=== PATIENT | female | born 1965 | race Caucasian/White ===

== ENCOUNTER 2021-03-07 16:02 | Inpatient (IN) ==
[2021-03-07 16:50] LABS: Basophils # (auto) 0.04 K/uL (0-0.2); Basophils % (auto) 0.2 %; Eosinophils # (auto) 0.13 K/uL (0-0.5); Eosinophils % (auto) 0.7 %; Hematocrit (blood only) 42.4 % (37-47); Hemoglobin 14.8 g/dL (12.0-16.0); Immature Granulocytes # (auto) 0.05 K/uL (0.00-0.02); Immature Granulocytes % (auto) 0.3 %; Lymphocytes # (auto) 2.35 K/uL (1.2-3.4); Lymphocytes % (auto) 13.3 %; Mean Corpuscular Hgb Conc 34.9 g/dL (32-36); Mean Corpuscular Volume 91.6 fL (80-100); Mean Platelet Volume 10.1 fL (7.4-10.4); Monocytes # (auto) 1.47 K/uL (0.11-0.59); Monocytes % (auto) 8.3 %; Neutrophils # (auto) 13.62 K/uL (1.4-6.5); Neutrophils % (auto) 77.2 %; Platelet Count 348 K/uL (130-400); RDW Standard Deviation 43.5 fL (36.4-46.3); Red Blood Count 4.63 M/uL (4.2-5.4); White Blood Count 17.66 K/uL (4.8-10.8)
[2021-03-07] MEDS ORDERED: SODIUM CHLORIDE 0.9% 1000ML 2,000 ML IV ONE (16:54)
[2021-03-07 17:08] LABS: Albumin Level 3.4 gm/dl (3.4-5.0); BUN Creatinine Ratio 18.1 (10-20); Calcium 9.5 mg/dl (8.5-10.1); Creatinine Clr Calc Pharmacy 73.9 ml/min; Est GFR (African American) 115.6; Est GFR (Non-African American) 99.8; Potassium 3.9 mmol/L (3.5-5.1)
[2021-03-07 17:09] LABS: Pregnancy Test, Serum Negative (Negative)
[2021-03-07 17:11] LABS: Albumin Globulin Ratio 0.7 (0.9-2); Bilirubin,Total 0.7 mg/dl (0.2-1); Globulin 4.7 gm/dl (2.5-4.0); Total Protein 8.1 gm/dl (6.4-8.2)
[2021-03-07 17:16] LABS: Appearance Urine Clear (Clear); Bacteria Urine Automated Negative (Negative); Bilirubin Urine Negative (Negative); Blood Urine Negative (Negative); Cast Urine Automated 0 /lpf (0-5); Color Urine Dark Yellow; Epithelial Cell Urine Auto 20-30 /lpf (0-5); Glucose Urine UA Negative (Negative); Ketones Urine 2+ (Negative); Leukocyte Esterase Urine Trace (Negative); Nitrite Urine Negative (Negative); Protein Urine Negative (Negative); Urobilinogen Urine Negative (Negative)
[2021-03-07 17:31] LABS: Mucus Urine Present (None Prsent); RBC Urine Automated 0-4 /hpf (0-4)
[2021-03-07] MEDS ORDERED: OPTIRAY 300 100mL IV ONE (17:55)
--- NOTE | 2021-03-07 18:24 | CT Scan Report ---
ABDOMEN AND PELVIS CT WITH IV CONTRAST CT DOSE: 247.52 mGy.cm HISTORY: Acute sepsis with lower pelvic pain sepsis TECHNIQUE: Multiaxial CT images of the abdomen and pelvis were performed following the IV administrat ion of 83 cc of Optiray, A dose lowering technique was utilized adhering to the principles of ALARA. COMPARISON STUDY: CT abdomen and pelvis 02/24/2021 FINDINGS: Clear lung bases. No pneumatosis or pneumoperitoneum. The imaged inferior cardiac chambers are unrema rkable. The spleen, pancreas, adrenal glands, gallbladder and liver appear unremarkable. Patency of t he hepatic and portal veins. Unremarkable kidneys. There is no hydronephrosis. Urinary bladder, uterus and adnexa are unremarkable . Mild dilation of the left gonadal vein. Calcified plaque of the abdominal aorta without aneurysm. T here is no adenopathy. There is no bowel obstruction. Mild fecal retention. Moderate wall thickening of the mid sigmoid colo n with pericolonic infiltration centered around a sigmoid diverticulum on image 255. Moderate to exte nsive colonic diverticulosis. There is no abscess. The appendix is reportedly surgically absent. Unre markable soft tissues. No acute fracture. IMPRESSION: 1. Acute sigmoid diverticulitis. No abscess or pneumoperitoneum. 2. No bowel obstruction. 3. Additional findings as above. ACT 112: Negative or not required by law. The above report was generated using voice recognition software. It may contain grammatical, syntax o r spelling errors. Electronically signed by: Tommy Tirado M.D. 03/07/2021 6:23 PM
[2021-03-07] MEDS ORDERED: metroNIDAZOLE 500 MG/100 ML BAG IV STA (18:29)
[2021-03-07] MEDS ORDERED: CIPROFLOXACIN / D5W 400 MG/200 ML BAG IV STA (18:29)
--- NOTE | 2021-03-07 19:34 | Emergency Department Note ---
Impression & Plan Diverticulitis, Abdominal pain, Leukocytosis ED Provider Note NAME: JUWAN MORGAN AGE: 55 SEX: F : 1965 ARRIVES VIA: Walk-In INFORMANT: Patient ED PROVIDER(S): Fly Garcia DO CHIEF COMPLAINT: abdominal pain HPI: Patient is a 55-year-old female who presents the ER for severe abdominal pain. She rates the pain is a 9 out of 10. Its in the lower pelvis. She notes she was initially seen here about 2 weeks ago and treated for constipation discharge. She felt a little bit better and then this past Friday is when the pain started back up. She notes that she can barely move. She admits to nausea but no vomiting. Admits to some dysuria and urgency but no frequency. She saw gastroenterology today was placed on antibiotics. She admits to feeling hot and cold and chills in the past 24 hours. ROS: See above HPI for pertinent positives & negatives. A total of 10 systems reviewed and were otherwise negative. PAST MEDICAL HISTORY:See Below PAST SURGICAL HISTORY:See Below FAMILY HISTORY:See Below SOCIAL HISTORY:See Below HOME MEDICATIONS:See Below ALLERGIES:See Below VITALS:See Below PHYSICAL EXAMINATION: GENERAL: Lying in bed, moderate distress holding lower abdomen EYE EXAM: normal conjunctiva. PERRL and EOM's grossly intact. OROPHARYNX: mucous membranes are moist NECK: supple, no nuchal rigidity, no adenopathy, non-tender LUNGS: Clear to auscultation. Normal chest wall mechanics HEART: no murmurs, S1 normal and S2 normal ABDOMEN: abdomen soft, normo-active bowel sounds, no masses, +rebound or guarding in RLQ. UPPER EXTREMITIES: upper extremities are grossly normal. LOWER EXTREMITIES: No pitting edema. NEURO EXAM: Normal sensorium, cranial nerves II-XII grossly intact, normal speech, no gross weakness of arms, no gross weakness of legs. MEDICAL DECISION MAKING: Patient is a 55-year-old female who presents ER for severe abdominal pain. On exam she has rebound and guarding. IV was established blood work was obtained. Labs show leukocytosis 17,000. No significant anemia. She was tachycardic and borderline febrile upon arrival. BMP with LFTs bilirubin was unremarkable. Lipase was normal. hCG was negative. Urine was contaminated. was negative. Covid was ordered. CT abdomen pelvis shows sigmoid diverticulitis. There is no evidence of perforation. Patient has an allergy to penicillins and consequently was given Cipro and Flagyl to the IV. Based on exam with rebound and guarding, white count of 17,000, fever and tachycardia did feel was most reasonable to admit this patient. Discussed with Dr. Aida Maldonado for further evaluation. Triage Nursing notes reviewed. Vital Signs: reviewed and remarkable for febrile and tachy Differential diagnosis: Differential diagnoses includes but is not limited to gastritis, peptic ulcer disease, GERD, gallbladder disease, pancreatitis, small bowel obstruction, acute coronary syndrome, pericarditis, ischemic bowel, irritable bowel disease, irritable bowel syndrome, appendicitis, diverticulitis, malignancy, hernia, urinary tract infection, torsion, [/ectopic (if female)], perforation, trauma, infectious. ER treatment provided: See below Diagnostics interpreted by me: ECG: none Cardiac Monitoring: An order was placed for continuous cardiac monitoring. The monitor shows a rate of 85 with sinus rhythm. Laboratory studies: As stated above and show below. Imaging studies: CT abdomen pelvis shows sigmoid diverticulitis Consultation(s): Discussed with Dr. Cass Maldonado for further evaluation Procedures: none Critical Care: None Past Med/Surg History Medical History (Updated 03/07/21 @ 19:34 by Fly Garcia DO) No active medical problems Social History Smoking Status: Current every day smoker Feels Safe at Home: Yes Allergies Allergies Allergy/AdvReac Type Severity Reaction Status Date / Time Penicillins Allergy Joint Pain Unverified 03/07/21 18:51 aspirin AdvReac Weakness Unverified 03/07/21 18:51 Home Meds Home Medications Medication Instructions Recorded Confirmed fluticasone propion-salmeterol 2 inh INHALATION BID 02/24/21 03/07/21 [Advair HFA] Results & Data (ED) Vital Signs Vital Signs - 24 hr 03/07/21 16:10 03/07/21 17:00 03/07/21 18:46 Temperature 37.6 C H 37.8 C H Temperature Source Temporal Artery Scan Oral Pulse Rate 112 H Pulse Rate [Finger] 96 H 89 Respiratory Rate 18 16 20 Respiratory Effort / Characteristics Non-Labored Non-Labored Spontaneous Respiratory Depth Normal Normal Normal Respiratory Pattern Regular Blood Pressure 138/83 Blood Pressure [Right Arm] 120/89 133/84 Blood Pressure Mean 101 Blood Pressure Mean [Right Arm] 99 100 Pulse Oximetry 94 95 92 Oxygen Delivery Method Room Air Room Air Room Air Sepsis Recent Fever Within 48 Hours No Sepsis New/Unexplained Change in Mental Status No Sepsis Action Taken by Nursing No Action Required Laboratory Data Result diagrams: 03/07/21 16:33 03/07/21 16:33 Lab Results 03/07/21 03/07/21 03/07/21 Range/Units 16:33 16:33 16:33 WBC 17.66 H (4.8-10.8) K/uL RBC 4.63 (4.2-5.4) M/uL Hgb 14.8 (12.0-16.0) g/dL Hct 42.4 (37-47) % MCV 91.6 (80-100) fL MCH 32.0 (25-34) pg MCHC 34.9 (32-36) g/dL RDW Std Deviation 43.5 (36.4-46.3) fL RDW Coeff of Blossom 13.0 (11.5-14.5) % Plt Count 348 (130-400) K/uL MPV 10.1 (7.4-10.4) fL Immature Gran % (Auto) 0.3 % Neut % (Auto) 77.2 % Lymph % (Auto) 13.3 % [place] % (Auto) 8.3 % Eos % (Auto) 0.7 % Baso % (Auto) 0.2 % Neut # (Auto) 13.62 H (1.4-6.5) K/uL Lymph # (Auto) 2.35 (1.2-3.4) K/uL [place] # (Auto) 1.47 H (0.11-0.59) K/uL Eos # (Auto) 0.13 (0-0.5) K/uL Baso # (Auto) 0.04 (0-0.2) K/uL Immature Gran # (Auto) 0.05 H (0.00-0.02) K/uL Sodium 137 (136-145) mmol/L Potassium 3.9 (3.5-5.1) mmol/L Chloride 104 (98-107) mmol/L Carbon Dioxide 26 (21-32) mmol/L Anion Gap 7.0 (3-11) BUN 12 (7-18) mg/dl Creatinine 0.64 (0.6-1.2) mg/dl Est Cr Clr Drug Dosing 73.9 ml/min Est GFR ( Amer) 115.6 Est GFR (Non-Af Amer) 99.8 BUN/Creatinine Ratio 18.1 (10-20) Glucose 103 H (70-99) mg/dl Calcium 9.5 (8.5-10.1) mg/dl Total Bilirubin 0.7 (0.2-1) mg/dl AST 15 (15-37) U/L ALT 23 (12-78) U/L Alkaline Phosphatase 91 (45-117) U/L Total Protein 8.1 (6.4-8.2) gm/dl Albumin 3.4 (3.4-5.0) gm/dl Globulin 4.7 H (2.5-4.0) gm/dl Albumin/Globulin Ratio 0.7 L (0.9-2) Lipase 70 L (73-393) U/L HCG, Qual Negative (Negative) Urine Color Urine Appearance (Clear) Urine pH (4.5-7.5) Ur Specific [place] (1.000-1.030) Urine Protein (Negative) Urine Glucose (UA) (Negative) Urine Ketones (Negative) Urine Blood (Negative) Urine Nitrite (Negative) Urine Bilirubin (Negative) Urine Urobilinogen (Negative) Ur Leukocyte Esterase (Negative) Urine WBC (Auto) (0-5) /hpf Urine RBC (Auto) (0-4) /hpf U Hyaline Cast (Auto) (0-5) /lpf U Epithel Cells (Auto) (0-5) /lpf Urine Bacteria (Auto) (Negative) Urine Mucus (None Prsent) POC Ur Test (NEG) COVID-19 Eval Order 03/07/21 03/07/21 03/07/21 Range/Units 17:05 17:05 18:54 WBC (4.8-10.8) K/uL RBC (4.2-5.4) M/uL Hgb (12.0-16.0) g/dL Hct (37-47) % MCV (80-100) fL MCH (25-34) pg MCHC (32-36) g/dL RDW Std Deviation (36.4-46.3) fL RDW Coeff of Blossom (11.5-14.5) % Plt Count (130-400) K/uL MPV (7.4-10.4) fL Immature Gran % (Auto) % Neut % (Auto) % Lymph % (Auto) % [place] % (Auto) % Eos % (Auto) % Baso % (Auto) % Neut # (Auto) (1.4-6.5) K/uL Lymph # (Auto) (1.2-3.4) K/uL [place] # (Auto) (0.11-0.59) K/uL Eos # (Auto) (0-0.5) K/uL Baso # (Auto) (0-0.2) K/uL Immature Gran # (Auto) (0.00-0.02) K/uL Sodium (136-145) mmol/L Potassium (3.5-5.1) mmol/L Chloride (98-107) mmol/L Carbon Dioxide (21-32) mmol/L Anion Gap (3-11) BUN (7-18) mg/dl Creatinine (0.6-1.2) mg/dl Est Cr Clr Drug Dosing ml/min Est GFR ( Amer) Est GFR (Non-Af Amer) BUN/Creatinine Ratio (10-20) Glucose (70-99) mg/dl Calcium (8.5-10.1) mg/dl Total Bilirubin (0.2-1) mg/dl AST (15-37) U/L ALT (12-78) U/L Alkaline Phosphatase (45-117) U/L Total Protein (6.4-8.2) gm/dl Albumin (3.4-5.0) gm/dl Globulin (2.5-4.0) gm/dl Albumin/Globulin Ratio (0.9-2) Lipase (73-393) U/L HCG, Qual (Negative) Urine Color Dark Yellow Urine Appearance Clear (Clear) Urine pH 5.0 (4.5-7.5) Ur Specific [place] 1.020 (1.000-1.030) Urine Protein Negative (Negative) Urine Glucose (UA) Negative (Negative) Urine Ketones 2+ H (Negative) Urine Blood Negative (Negative) Urine Nitrite Negative (Negative) Urine Bilirubin Negative (Negative) Urine Urobilinogen Negative (Negative) Ur Leukocyte Esterase Trace H (Negative) Urine WBC (Auto) 1-5 (0-5) /hpf Urine RBC (Auto) 0-4 (0-4) /hpf U Hyaline Cast (Auto) 0 (0-5) /lpf U Epithel Cells (Auto) 20-30 H (0-5) /lpf Urine Bacteria (Auto) Negative (Negative) Urine Mucus Present A (None Prsent) POC Ur Test NEG (NEG) COVID-19 Eval Order CovFluRsv at [facility] Administered Medications Ciprofloxacin (Cipro / D5w) 400 mg in 200 mls @ 100 mls/hr IV NOW STA; Protocol Stop: 03/07/21 20:28 Last Admin: 03/07/21 18:51 Dose: 100 mls/hr Documented by: [id number] Discontinued Medications Sodium Chloride (Nss 1000ml) 2,000 mls @ 999 mls/hr IV .Q2H1M ONE Stop: 03/07/21 18:54 Last Admin: 03/07/21 17:10 Dose: 999 mls/hr Documented by: [id number] Metronidazole (Flagyl) 500 mg in 100 mls @ 100 mls/hr IV NOW STA Stop: 03/07/21 19:28 Last Admin: 03/07/21 19:26 Dose: 100 mls/hr Documented by: [id number] Ioversol (Optiray 300 100ml) 83 ml IV ONCE ONE Stop: 03/07/21 17:56 Last Admin: 03/07/21 17:57 Dose: 83 ml Documented by: [id number] Imaging Data Radiologist's Impression: Abdomen/Pelvis CT 03/07/21 16:[address] WITH IV CONTRAST CT DOSE: 247.52 mGy.cm HISTORY: Acute sepsis with lower pelvic pain sepsis TECHNIQUE: Multiaxial CT images of the abdomen and pelvis were performed following the IV administration of 83 cc of Optiray, A dose lowering technique was utilized adhering to the principles of ALARA. COMPARISON STUDY: CT abdomen and pelvis 02/24/2021 FINDINGS: Clear lung bases. No pneumatosis or pneumoperitoneum. The imaged inferior cardiac chambers are unremarkable. The spleen, pancreas, adrenal glands, gallbladder and liver appear unremarkable. Patency of the hepatic and portal veins. Unremarkable kidneys. There is no hydronephrosis. Urinary bladder, uterus and adnexa are unremarkable. Mild dilation of the left gonadal vein. Calcified plaque of the abdominal aorta without aneurysm. There is no adenopathy. There is no bowel obstruction. Mild fecal retention. Moderate wall thickening of the mid sigmoid colon with pericolonic infiltration centered around a sigmoid diverticulum on image 255. Moderate to extensive colonic diverticulosis. There is no abscess. The appendix is reportedly surgically absent. Unremarkable soft tissues. No acute fracture. IMPRESSION: 1. Acute sigmoid diverticulitis. No abscess or pneumoperitoneum. 2. No bowel obstruction. 3. Additional findings as above. ACT 112: Negative or not required by law. The above report was generated using voice recognition software. It may contain grammatical, syntax or spelling errors. Electronically signed by: Tommy Tirado M.D. 03/07/2021 6:23 PM Discharge Plan Visit Data Chief Complaint: Abdominal Pain Stated Complaint: SEVERE ABDOMINAL PAIN, CONSTIPATION ED Provider: Fly Garcia Discharge Problem: Diverticulitis, Abdominal pain, Leukocytosis Forms Stand Alone Forms: [facility] [employer] Prescriptions Prescriptions: No Action Advair HFA 115-21 mcg/actuation HFA aerosol inhaler 2 inh INHALATION BID RF: 0 Discharge Problem: Abdominal pain Qualifiers: Abdominal location: unspecified location Qualified Code(s): R10.9 - Unspecified abdominal pain Leukocytosis Qualifiers: Leukocytosis type: unspecified Qualified Code(s): D72.829 - Elevated white blood cell count, unspecified
[2021-03-07] MEDS ORDERED: ACETAMINOPHEN 1,000 MG/100 ML VIAL IV STA (19:45)
--- NOTE | 2021-03-07 19:45 | History & Physical Report ---
Date of Service March 07, 2021 Assessment & Plan (1) Diverticulitis: 55yo C female presenting with acute uncomplicated sigmoid diverticulitis, symptoms ongoing x 2 weeks. Patient does have significant leukocytosis with WBC=17.66 as well as severe lower abdominal tenderness on exam. She is afeb rile, HD stable. -Admit to medical floor -Keep NPO -LR at 100mL/hr x 2 liters -Ciprofloxacin 400mg IV BID -Flagyl 500mg IV q8 -Toradol as needed (patient does not tolerate opioids) -Patient is scheduled to go on vacation to the [employer] and was planning on leaving early Friday AM (03/10/21) -Patient should be scheduled for outpatient screening colonoscopy after appropriate time period has passed Present on Admission?: Yes (2) Asthma: Patient with significant smoking history, 1ppd x 20+ years. Most likely has some degree of underlying COPD as well. -Smoking cessation -Advair -Albuterol PRN Present on Admission?: Yes (3) Constipation: Patient with two weeks of constipation. Has been taking stool softeners and laxatives at home -Colace PRN -Miralax PRN -IVF and electrolyte repletion F/E/N- LR at 100mL/hr x 2 liters, electrolytes WNL, NPO Ppx - SCDs Code - Full Dispo - Admit to medical History of Present Illness Chief Complaint: Abdominal pain Primary Care Provider: Bret Wray is a 55yo female with history of asthma presenting with 2 weeks of constipation and abdominal pain. Patient complains of severe lower abdominal pain, constant, 9/10. Pain is worsened by movement. She has had some subjective fevers and chills at home. She has also had some constipation - she has been taking laxatives and stool softeners at home with minimal effect. She had a small bowel movement yesterday. She has some pain after urination as well as dysuria as well. No additional complaints at this time. Patient was seen in the ER for similar complaint on 02/24/21. CT at that time with moderate to severe constipation with mild wall thickening and pericolonic inflammation of the left colon. She was discharged home. Patient received her second Covid-19 vaccine 1 week ago. ER Course: Ciprofloxacin, Flagyl, NSS x 2L Allergies Allergy/AdvReac Type Severity Reaction Status Date / Time Penicillins Allergy Joint Pain Unverified 03/07/21 18:51 aspirin AdvReac Weakness Unverified 03/07/21 18:51 Home Medications Medication Instructions Recorded Confirmed Type fluticasone propion-salmeterol 2 inh INHALATION BID 02/24/21 03/07/21 History [Advair HFA] Past Med/Surg History Medical History (Updated 03/07/21 @ 20:11 by Cass Maldonado DO) Asthma Surgical History (Updated 03/07/21 @ 20:01 by Cass Maldonado DO) History of appendectomy History of neck surgery Family History (Updated 03/07/21 @ 20:01 by Cass Maldonado DO) Other Cancer Social History (Updated 03/07/21 @ 20:01 by Cass Maldonado DO) Smoking Status: Current every day smoker Hx Alcohol Use: No Hx Substance Use: No Feels Safe at Home: Yes Review of Systems Review of Systems: All systems reviewed & are unremarkable except as noted in HPI & below +Chills +abdominal pain +constipation +dysuria Patient denies chest pain/cough/SOB/vomiting/vaginal discharge Physical Exam Physical Exam: General: patient resting, AA&O x 4, answers questions appropriately, mild distress secondary to abdoinal pain Skin: warm, dry, intact, no rashes or lesions HEENT: NC/AT, PERRL, EOMI, anicteric sclera, conjunctiva without injection, external ear normal to inspection and nontender, nares patent, moist mucus membranes, dentition intact, no oropharyngeal lesions, neck supple, trachea midline, no LAD, no thyromegaly, no JVD Heart: +S1/S2, regular, no m/r/g Lungs: equal air entry bilaterally, no rales/rhonchi, diffuse end-expiratory wheezing throughout bilateral lung moore Abd: +BS, soft, ND, very tender to palpation in lower abdomen with guarding Ext: warm, 2+ pulses in UE/LE bilaterally, no clubbing/cyanosis or edema Neuro: nonfocal, patient AA&O x 4, speech intact, no facial droop, moving all extremities on command with equal strength 5/5 Results & Data Results & Data ([facility]) Vital Signs (Past 12 Hours) Vital Signs Temp Pulse Pulse Resp BP BP Pulse Ox 03/07/21 19:30 97 H 14 95 03/07/21 19:00 90 15 130/94 95 03/07/21 18:46 37.8 C H 89 20 133/84 92 03/07/21 17:00 96 H 16 120/89 95 03/07/21 16:10 37.6 C H 112 H 18 138/83 94 Laboratory Results Lab Results 03/07/21 03/07/21 03/07/21 Range/Units 16:33 16:33 16:33 WBC 17.66 H (4.8-10.8) K/uL RBC 4.63 (4.2-5.4) M/uL Hgb 14.8 (12.0-16.0) g/dL Hct 42.4 (37-47) % MCV 91.6 (80-100) fL MCH 32.0 (25-34) pg MCHC 34.9 (32-36) g/dL RDW Std Deviation 43.5 (36.4-46.3) fL RDW Coeff of Blossom 13.0 (11.5-14.5) % Plt Count 348 (130-400) K/uL MPV 10.1 (7.4-10.4) fL Immature Gran % (Auto) 0.3 % Neut % (Auto) 77.2 % Lymph % (Auto) 13.3 % [place] % (Auto) 8.3 % Eos % (Auto) 0.7 % Baso % (Auto) 0.2 % Neut # (Auto) 13.62 H (1.4-6.5) K/uL Lymph # (Auto) 2.35 (1.2-3.4) K/uL [place] # (Auto) 1.47 H (0.11-0.59) K/uL Eos # (Auto) 0.13 (0-0.5) K/uL Baso # (Auto) 0.04 (0-0.2) K/uL Immature Gran # (Auto) 0.05 H (0.00-0.02) K/uL Sodium 137 (136-145) mmol/L Potassium 3.9 (3.5-5.1) mmol/L Chloride 104 (98-107) mmol/L Carbon Dioxide 26 (21-32) mmol/L Anion Gap 7.0 (3-11) BUN 12 (7-18) mg/dl Creatinine 0.64 (0.6-1.2) mg/dl Est Cr Clr Drug Dosing 73.9 ml/min Est GFR ( Amer) 115.6 Est GFR (Non-Af Amer) 99.8 BUN/Creatinine Ratio 18.1 (10-20) Glucose 103 H (70-99) mg/dl Calcium 9.5 (8.5-10.1) mg/dl Total Bilirubin 0.7 (0.2-1) mg/dl AST 15 (15-37) U/L ALT 23 (12-78) U/L Alkaline Phosphatase 91 (45-117) U/L Total Protein 8.1 (6.4-8.2) gm/dl Albumin 3.4 (3.4-5.0) gm/dl Globulin 4.7 H (2.5-4.0) gm/dl Albumin/Globulin Ratio 0.7 L (0.9-2) Lipase 70 L (73-393) U/L HCG, Qual Negative (Negative) Urine Color Urine Appearance (Clear) Urine pH (4.5-7.5) Ur Specific [place] (1.000-1.030) Urine Protein (Negative) Urine Glucose (UA) (Negative) Urine Ketones (Negative) Urine Blood (Negative) Urine Nitrite (Negative) Urine Bilirubin (Negative) Urine Urobilinogen (Negative) Ur Leukocyte Esterase (Negative) Urine WBC (Auto) (0-5) /hpf Urine RBC (Auto) (0-4) /hpf U Hyaline Cast (Auto) (0-5) /lpf U Epithel Cells (Auto) (0-5) /lpf Urine Bacteria (Auto) (Negative) Urine Mucus (None Prsent) POC Ur Test (NEG) COVID-19 Eval Order SARS-CoV-2 (PCR) (Negative) Influenza Type A (PCR) (Neg) Influenza Type B (PCR) (Neg) RSV (RT-PCR) (Neg) 03/07/21 03/07/21 03/07/21 Range/Units 17:05 17:05 18:54 WBC (4.8-10.8) K/uL RBC (4.2-5.4) M/uL Hgb (12.0-16.0) g/dL Hct (37-47) % MCV (80-100) fL MCH (25-34) pg MCHC (32-36) g/dL RDW Std Deviation (36.4-46.3) fL RDW Coeff of Blossom (11.5-14.5) % Plt Count (130-400) K/uL MPV (7.4-10.4) fL Immature Gran % (Auto) % Neut % (Auto) % Lymph % (Auto) % [place] % (Auto) % Eos % (Auto) % Baso % (Auto) % Neut # (Auto) (1.4-6.5) K/uL Lymph # (Auto) (1.2-3.4) K/uL [place] # (Auto) (0.11-0.59) K/uL Eos # (Auto) (0-0.5) K/uL Baso # (Auto) (0-0.2) K/uL Immature Gran # (Auto) (0.00-0.02) K/uL Sodium (136-145) mmol/L Potassium (3.5-5.1) mmol/L Chloride (98-107) mmol/L Carbon Dioxide (21-32) mmol/L Anion Gap (3-11) BUN (7-18) mg/dl Creatinine (0.6-1.2) mg/dl Est Cr Clr Drug Dosing ml/min Est GFR ( Amer) Est GFR (Non-Af Amer) BUN/Creatinine Ratio (10-20) Glucose (70-99) mg/dl Calcium (8.5-10.1) mg/dl Total Bilirubin (0.2-1) mg/dl AST (15-37) U/L ALT (12-78) U/L Alkaline Phosphatase (45-117) U/L Total Protein (6.4-8.2) gm/dl Albumin (3.4-5.0) gm/dl Globulin (2.5-4.0) gm/dl Albumin/Globulin Ratio (0.9-2) Lipase (73-393) U/L HCG, Qual (Negative) Urine Color Dark Yellow Urine Appearance Clear (Clear) Urine pH 5.0 (4.5-7.5) Ur Specific [place] 1.020 (1.000-1.030) Urine Protein Negative (Negative) Urine Glucose (UA) Negative (Negative) Urine Ketones 2+ H (Negative) Urine Blood Negative (Negative) Urine Nitrite Negative (Negative) Urine Bilirubin Negative (Negative) Urine Urobilinogen Negative (Negative) Ur Leukocyte Esterase Trace H (Negative) Urine WBC (Auto) 1-5 (0-5) /hpf Urine RBC (Auto) 0-4 (0-4) /hpf U Hyaline Cast (Auto) 0 (0-5) /lpf U Epithel Cells (Auto) 20-30 H (0-5) /lpf Urine Bacteria (Auto) Negative (Negative) Urine Mucus Present A (None Prsent) POC Ur Test NEG (NEG) COVID-19 Eval Order CovFluRsv at [facility] SARS-CoV-2 (PCR) (Negative) Influenza Type A (PCR) (Neg) Influenza Type B (PCR) (Neg) RSV (RT-PCR) (Neg) 03/07/21 Range/Units 18:54 WBC (4.8-10.8) K/uL RBC (4.2-5.4) M/uL Hgb (12.0-16.0) g/dL Hct (37-47) % MCV (80-100) fL MCH (25-34) pg MCHC (32-36) g/dL RDW Std Deviation (36.4-46.3) fL RDW Coeff of Blossom (11.5-14.5) % Plt Count (130-400) K/uL MPV (7.4-10.4) fL Immature Gran % (Auto) % Neut % (Auto) % Lymph % (Auto) % [place] % (Auto) % Eos % (Auto) % Baso % (Auto) % Neut # (Auto) (1.4-6.5) K/uL Lymph # (Auto) (1.2-3.4) K/uL [place] # (Auto) (0.11-0.59) K/uL Eos # (Auto) (0-0.5) K/uL Baso # (Auto) (0-0.2) K/uL Immature Gran # (Auto) (0.00-0.02) K/uL Sodium (136-145) mmol/L Potassium (3.5-5.1) mmol/L Chloride (98-107) mmol/L Carbon Dioxide (21-32) mmol/L Anion Gap (3-11) BUN (7-18) mg/dl Creatinine (0.6-1.2) mg/dl Est Cr Clr Drug Dosing ml/min Est GFR ( Amer) Est GFR (Non-Af Amer) BUN/Creatinine Ratio (10-20) Glucose (70-99) mg/dl Calcium (8.5-10.1) mg/dl Total Bilirubin (0.2-1) mg/dl AST (15-37) U/L ALT (12-78) U/L Alkaline Phosphatase (45-117) U/L Total Protein (6.4-8.2) gm/dl Albumin (3.4-5.0) gm/dl Globulin (2.5-4.0) gm/dl Albumin/Globulin Ratio (0.9-2) Lipase (73-393) U/L HCG, Qual (Negative) Urine Color Urine Appearance (Clear) Urine pH (4.5-7.5) Ur Specific [place] (1.000-1.030) Urine Protein (Negative) Urine Glucose (UA) (Negative) Urine Ketones (Negative) Urine Blood (Negative) Urine Nitrite (Negative) Urine Bilirubin (Negative) Urine Urobilinogen (Negative) Ur Leukocyte Esterase (Negative) Urine WBC (Auto) (0-5) /hpf Urine RBC (Auto) (0-4) /hpf U Hyaline Cast (Auto) (0-5) /lpf U Epithel Cells (Auto) (0-5) /lpf Urine Bacteria (Auto) (Negative) Urine Mucus (None Prsent) POC Ur Test (NEG) COVID-19 Eval Order SARS-CoV-2 (PCR) NEGATIVE (Negative) Influenza Type A (PCR) Negative (Neg) Influenza Type B (PCR) Negative (Neg) RSV (RT-PCR) Negative (Neg) Diagnostic Findings ABDOMEN AND PELVIS CT WITH IV CONTRAST CT DOSE: 247.52 mGy.cm HISTORY: Acute sepsis with lower pelvic pain sepsis TECHNIQUE: Multiaxial CT images of the abdomen and pelvis were performed following the IV administration of 83 cc of Optiray, A dose lowering technique was utilized adhering to the principles of ALARA. COMPARISON STUDY: CT abdomen and pelvis 02/24/2021 FINDINGS: Clear lung bases. No pneumatosis or pneumoperitoneum. The imaged inferior cardia c chambers are unremarkable. The spleen, pancreas, adrenal glands, gallbladder and liver appear unremarkable. Patency of the hepatic and portal veins. Unremarkable kidneys. There is no hydronephrosis. Urinary bladder, uterus and adnexa are unremarkable. Mild dilation of the left gonadal vein. Calcified plaque of the abdominal aorta without aneurysm. There is no adenopathy. There is no bowel obstruction. Mild fecal retention. Moderate wall thickening of the mid sigmoid colon with pericolonic infiltration centered around a sigmoid diverticulum on image 255. Moderate to extensive colonic diverticulosis. There is no abscess. The appendix is reportedly surgically absent. Unremarkable soft tissues. No acute fracture. IMPRESSION: 1. Acute sigmoid diverticulitis. No abscess or pneumoperitoneum. 2. No bowel obstruction. 3. Additional findings as above. ACT 112: Negative or not required by law. The above report was generated using voice recognition software. It may contain grammatical, syntax or spelling errors. Electronically signed by: Tommy Tirado M.D. 03/07/2021 6:23 PM Dictated: 03/07/211812Transcribed: 03/07/211812 Code Status & VTE Plan VTE Prophylaxis Plan VTE Prophylaxis will be ordered: Yes PG Care Time/CCT Total # of Minutes Spent Total Time Spent with Patient: Total time spent is greater than 50% in coordination of care (as documented) at patient's floor/unit and/or counseling patient: Coding Level of Care Code 84932 Initial Inpt Care Lvl 2 Diagnoses Diverticulitis K57.92 Asthma J45.909 Asthma severity: unspecified severity Asthma persistence: unspecified Asthma complication type: uncomplicated Constipation K59.00 Constipation type: unspecified constipation type (1) Asthma Asthma severity: unspecified severity Asthma persistence: unspecified Asthma complication type: uncomplicated Qualified Code(s): J45.909 - Unspecified asthma, uncomplicated (2) Constipation Constipation type: unspecified constipation type Qualified Code(s): K59.00 - Constipation, unspecified
[2021-03-07 19:48] LABS: Influenza A virus by PCR Negative (Neg); Influenza B virus by PCR Negative (Neg); RSV by PCR Negative (Neg); SARS CoV2 RNA(COVID-19) InHosp NEGATIVE (Negative)
[2021-03-07] MEDS ORDERED: ACETAMINOPHEN 1000 MG/100 ML IV IV ONE (19:48)
[2021-03-07] MEDS ORDERED: DOCUSATE SODIUM 100 MG CAP PO PRN (21:31)
[2021-03-07] MEDS ORDERED: ONDANSETRON INJ 2 MG/ML 2 ML VIAL IV PRN (21:31)
[2021-03-07] MEDS ORDERED: ALBUTEROL 0.083% NEBU SOLN 3 ML VIAL NEB PRN (21:31)
[2021-03-07] MEDS ORDERED: POLYETHYLENE (MIRALAX) 17 GM PACK PO PRN (21:31)
[2021-03-07] MEDS: KETOROLAC TROMETHAMINE 15 MG/ML VIAL IV PRN (22:07)
[2021-03-07] MEDS: LACTATED RINGER'S 1,000 ML IV SCH (22:09)
[2021-03-07] MEDS ORDERED: hydrOXYzine HCl 25 MG TAB PO PRN (23:13)
[2021-03-08] MEDS: KETOROLAC TROMETHAMINE 15 MG/ML VIAL IV PRN (04:15)
[2021-03-08] MEDS: metroNIDAZOLE 500 MG/100 ML BAG IV SCH ×2 (04:16→11:28)
[2021-03-08 05:51] LABS: Basophils # (auto) 0.03 K/uL (0-0.2); Basophils % (auto) 0.2 %; Eosinophils % (auto) 0.7 %; Hematocrit (blood only) 37.4 % (37-47); Hemoglobin 12.7 g/dL (12.0-16.0); Immature Granulocytes # (auto) 0.02 K/uL (0.00-0.02); Immature Granulocytes % (auto) 0.1 %; Lymphocytes # (auto) 1.62 K/uL (1.2-3.4); Lymphocytes % (auto) 11.3 %; Mean Corpuscular Hemoglobin 31.3 pg (25-34); Mean Corpuscular Volume 92.1 fL (80-100); Monocytes # (auto) 1.04 K/uL (0.11-0.59); Monocytes % (auto) 7.3 %; Neutrophils # (auto) 11.47 K/uL (1.4-6.5); Neutrophils % (auto) 80.4 %; Platelet Count 298 K/uL (130-400); RDW Standard Deviation 43.8 fL (36.4-46.3); Red Blood Count 4.06 M/uL (4.2-5.4); White Blood Count 14.28 K/uL (4.8-10.8)
[2021-03-08 06:26] LABS: Calcium 8.5 mg/dl (8.5-10.1); Creatinine Clr Calc Pharmacy 94.9 ml/min; Est GFR (African American) 125.4; Est GFR (Non-African American) 108.2; Potassium 3.8 mmol/L (3.5-5.1)
[2021-03-08] MEDS: LACTATED RINGER'S 1,000 ML IV SCH (07:50)
[2021-03-08] MEDS ORDERED: CIPROFLOXACIN / D5W 400 MG/200 ML BAG IV SCH (08:00)
[2021-03-08] MEDS ORDERED: FLUTICASONE/VILANTEROL 200/25MCG 14 PUFFS/INHALER INH SCH (09:00)
--- NOTE | 2021-03-08 10:45 | Hospitalist Progress Note ---
Date of Service March 08, 2021 Assessment & Plan (1) Diverticulitis: Kumar Wray is a 55yo female presenting with 2 week h/x of symptoms indicative of acute uncomplicated sigmoid diverticulitis. Patient presented with severe abdominal pain, severe lower abdominal tenderness on exam as well as s ignificant leukocytosis. Acute sigmoid diverticulitis confirmed on imaging. Diverticulitis: Patient has improvement of leukocytosis with WBC=14.28 (down from 17.66), as well as improvement in lower abdominal tenderness on exam. She is afebrile, HD stable, strict NPO since admission to medical floor. -LR at 100mL/hr x 2 liters -Ciprofloxacin 400mg IV BID -Flagyl 500mg IV q8 -Toradol as needed (patient does not tolerate opioids) -Transition to liquid diet and monitor -Will transition to oral antibiotic regimen for discharge (2) Asthma: Patient with significant smoking history, 1ppd x 20+ years. Most likely has some degree of underlying COPD as well. -Smoking cessation -Advair -Albuterol PRN (3) Constipation: Patient with two weeks of constipation. Has been taking stool softeners and laxatives at home -Colace PRN -Miralax PRN -IVF and electrolyte repletion F/E/N- LR at 100mL/hr x 2 liters, electrolytes WNL, NPO Ppx - SCDs Code - Full Dispo - Admit to medical Admission and Anticipated Discharge Date Admission Date: March 07, 2021 Subjective Kiley Cherrie is a 55yo female with history of asthma presenting with 2 weeks of constipation and abdominal pain. Two weeks ago, she felt severely constipated. She tried laxatives and stool softeners but they didnt help much. She also tried magnesium citrate and fleet enema with minimal relief. A couple days passed, and she started experiencing pain. She presented to the ER at that time, where CT showed constipation + colitis. Yesterday (03/07), patient complained of severe lower abdominal pain, constant, 9/10. Pain is worsened by movement. She reported experiencing some fevers and chills at home. She admits to nausea but no vomiting. Admits to some dysuria and urgency but no frequency, beginning about [address] yesterday showed Acute sigmoid diverticulitis. No abscess or pneumoperitoneum. Appendix was reportedly surgically absent. Labs showed significant leukocytosis with WBC=17.66. ER Course: Ciprofloxacin, Flagyl, NSS x 2L She has since been admitted to the medical floor. She is strictly NPO, Receiving LR at 100mL/hr x 2 liters -Ciprofloxacin 400mg IV BID, metronidazole, Flagyl 500mg IV q8, Toradol as needed (patient does not tolerate opioids) This morning, she was conversational and cooperative. Rated her pain 2/10 (3/10 at its worst). She reports her abdominal pain is greatly decreased from yesterday. She also denies fever, chills, headaches, nausea, shortness of breath. Also reports no dysuria or urgency. No bowel movement since admission. Patient received colase this morning. Review of Systems Constitutional: no fever, no chills and no body aches Respiratory: no cough and no chest congestion Cardiovascular: no chest pain, no dyspnea, no lightheadedness and no syncope Gastrointestinal: + constipation; no nausea and no hematemesis abdominal pain much improved Genitourinary: no dysuria, no difficulty urinating, no urinary frequency and no urinary urgency Physical Exam Physical Exam: General: patient resting, AA&O x 4, resting, pleasant, cooperative, NAD HEENT: NC/AT, anicteric sclera, no thyromegaly, no JVD Heart: +S1/S2, regular, no m/r/g Lungs: CTA bilaterally, no rales/rhonchi Abd: +BS, soft, ND, mild tenderness to palpation in lower abdomen. No rebound or guarding Ext: warm, 2+ pulses in UE/LE bilaterally, 5/5 strength, no clubbing/cyanosis or edema Neuro: grossly intact, no focal deficits Results & Data Results & Data ([facility]) Vital Signs (Past 12 Hours) Vital Signs Temp Pulse Resp BP Pulse Ox 03/08/21 07:35 37.2 C 86 16 109/75 95 03/08/21 01:06 81 18 95 (1) Asthma Asthma severity: unspecified severity Asthma persistence: unspecified Asthma complication type: uncomplicated Qualified Code(s): J45.909 - Unspecified asthma, uncomplicated (2) Constipation Constipation type: unspecified constipation type Qualified Code(s): K59.00 - Constipation, unspecified
[2021-03-08] MEDS: POLYETHYLENE (MIRALAX) 17 GM PACK PO SCH ×2 (11:07→13:47)
--- NOTE | 2021-03-08 14:58 | Discharge Summary ---
Date of Service March 08, 2021 Admission HPI Per Admitting Provider Kiley Wray is a 55yo female with history of asthma presenting with 2 weeks of constipation and abdominal pain. Patient complains of severe lower abdominal pain, constant, 9/10. Pain is worsened by movement. She has had some subjective fevers and chills at home. She has also had some constipation - she has been taking laxatives and stool softeners at home with minimal effect. She had a small bowel movement yesterday. She has some pain after urination as well as dysuria as well. No additional complaints at this time. Patient was seen in the ER for similar complaint on 02/24/21. CT at that time with moderate to severe constipation with mild wall thickening and pericolonic inflammation of the left colon. She was discharged home. Patient received her second Covid-19 vaccine 1 week ago. ER Course: Ciprofloxacin, Flagyl, NSS x 2L Admission Exam Per Admitting Provider General: patient resting, AA&O x 4, answers questions appropriately, mild distress secondary to abdominal pain Skin: warm, dry, intact, no rashes or lesions HEENT: NC/AT, PERRL, EOMI, anicteric sclera, conjunctiva without injection, external ear normal to inspection and nontender, nares patent, moist mucus membranes, dentition intact, no oropharyngeal lesions, neck supple, trachea midline, no LAD, no thyromegaly, no JVD Heart: +S1/S2, regular, no m/r/g Lungs: equal air entry bilaterally, no rales/rhonchi, diffuse end-expiratory wheezing throughout bilateral lung moore Abd: +BS, soft, ND, very tender to palpation in lower abdomen with guarding Ext: warm, 2+ pulses in UE/LE bilaterally, no clubbing/cyanosis or edema Neuro: nonfocal, patient AA&O x 4, speech intact, no facial droop, moving all extremities on command with equal strength 5/5 Principal Diagnosis Acute diverticulitis Discharge Exam Constitutional WD/WN, vitals as above no acute distress Eyes PERRL, conjunctivae normal, anicteric sclerae ENMT external ear and nose normal, oropharynx normal Neck normal visual inspection Respiratory normal respiratory effort, lungs clear to auscultation Cardiovascular RRR, no murmur, no edema Gastrointestinal (Abdomen) normal bowel sounds, soft, nontender, no hepatosplenomegaly Inspection/Auscultation: abdomen not distended Musculoskeletal no cyanosis or clubbing, extremities motor strength 5/5 Skin no rashes, warm and dry Neurologic no focal motor deficits Psychiatric A+Ox3, euthymic affect Discharge Data Allergies Allergy/AdvReac Type Severity Reaction Status Date / Time Penicillins Allergy Joint Pain Unverified 03/07/21 18:51 aspirin AdvReac Weakness Unverified 03/07/21 18:51 Consultations 03/07/21 18:34 ED Decision to Admit Stat Ordered Studies 03/07/21 16:54 CT abd pelvis IV con only Stat Hospital Course (1) Diverticulitis: Kiley Wray is a 55-year-old female with past medical history of asthma who ran [facility] with complaints of abdominal pain and constipation for 2 weeks. She was evaluated with an abdominal CT and found to have acute sigmoid diverticulitis with no perforation and no obstruction. She was admitted overnight and treated with IV ciprofloxacin and metronidazole. She improved significantly overnight and upon being evaluated this morning was completely asymptomatic from an abdominal pain standpoint. In light of her benign, reassuring exam, resolution of abdominal pain and lack of fever or signs of complication, the patient was deemed stable enough for discharge. She will continue on oral antibiotics with Augmentin 875 mg p.o. every 8 hours for an additional 7 days. She will continue taking MiraLAX and Colace for constipation. Counseled patient on signs of worsening infection and reasons for return to hospital. She is agreeable with the plan and expresses understanding. Total Time Total Time Spent Total Time Spent (In Minutes): See attending attestation Discharge Plan Discharge Items Patient Disposition: Home - Self-Care Reason For Visit: ACUTE DIVERTICULITIS Discharge Diagnosis: Acute diverticulitis Activity: Per Instructions section Non-emergency contact: Primary Care Provider Call non-emergency contact if: you have any medication questions, your symptoms worsen, your pain is not controlled and your pain is worsening Follow-up/Referrals: Bret Martini [Primary Care Provider] - Diet: Regular Addtl Attending Provider Instructions: He came to [facility] due to constipation and abdominal pain for the past 2 weeks. On evaluation in the emergency department your CAT scan showed acute sigmoid diverticulitis. As such, you were started on IV antibiotics and improved significantly. Your pain was very well controlled. We will thus discharge you on an oral antibiotic called Augmentin. You will take 1 pill 3 times daily until medication is all gone. For your constipation, we recommend that you use MiraLAX 1 capful daily as needed. If he had fever, chills, nausea, vomiting, worsening abdominal pain, or any other concerning symptoms please contact your healthcare provider or seek emergency medical care. Thank you for allowing us to participate in your care. Pending Studies at Discharge: No Stand-Alone Forms: My [facility], Smoking Cessation Medications and DC Order Prescriptions: New amoxicillin-pot clavulanate [Augmentin] 875-125 mg tablet 1 tab PO TID 7 Days Qty: 21 RF: 0 Continued Advair HFA 115-21 mcg/actuation HFA aerosol inhaler 2 inh INHALATION BID RF: 0 Discharge Orders: Discharge Order (Routine); Ordered 03/08/21 Ordered By: Raman Gould/Other Patient Handouts: Discharge Instructions for ... Admission Data Admit Date/Time: 03/07/21 19:44 Attending Provider: Suyapa Antonio Admit Provider: Cass Maldonado Primary Care Provider: Bret Martini Other Providers: Cass Maldonado Other Interventions: Discharge Summary Assessment (RN) Last Done: 03/08/21 14:27 Supervising Physician Co-Signing Physician Notes Resident Physician Supervision Note: I independently interviewed and examined the patient and verified the ocampo history and physical, reviewed labs and image studies, discussed the case with the resident Dr. Diaz and agree with the findings and care plan. Resident Activity Tracking Resident Involvement: Resident Care Provided Care Provided: Adult Hospital Medicine
== END 2021-03-08 15:23 | disposition home or self-care (01) | DRG 392 ==
LOC: ED 16:02 → 3N 19:44 → SUATTDRO 19:44 → 3N 21:17